=== PATIENT | female | born 1930 | race Caucasian/White ===

== ENCOUNTER 2018-09-23 12:25 | Outpatient (CLI) | payer MEDICARE, OTHER ==
[2018-09-23 17:58] LABS: CALCIUM 9.4 mg/dL (8.5-10.3); CREATININE 1.2 mg/dL (0.4-1.0)
== END 2018-09-23 12:26 | disposition home or self-care (01) ==
LOC: LAB.R 12:25
PROVIDERS: ATTEND Internal Medicine Medical Oncology
DX: E83.52 Hypercalcemia (principal); J18.9 Pneumonia, unspecified organism
CPT/HCPCS: 80048

== ENCOUNTER 2018-09-30 08:00 | Outpatient (CLI) | payer MEDICARE ==
[2018-09-30 18:31] LABS: CALCIUM 11.1 mg/dL (8.5-10.3); CREATININE 1.4 mg/dL (0.4-1.0)
== END 2018-09-30 08:01 | disposition home or self-care (01) ==
LOC: LAB.R 08:00
PROVIDERS: ATTEND Internal Medicine Medical Oncology
DX: N17.9 Acute kidney failure, unspecified (principal)
CPT/HCPCS: 80048